=== PATIENT | male | born 2000 | race Caucasian/White ===

== ENCOUNTER 2022-02-19 20:04 | Emergency (ER) | payer BC, MEDICAID, SELFPAY ==
[2022-02-19 20:09] VITALS: BP 122/71; PULSE 67; RESP 16; TEMP 36.6; O2SAT 98; BMI 23.1
--- NOTE | 2022-02-19 20:32 | ED.NURSE ---
strep swab obtained
--- NOTE | 2022-02-19 21:15 | ED.GENADULT ---
HPI - General Adult General Chief complaint: Sore Throat Stated complaint: SORE THROAT WITH PUSS POCKETS Time Seen by Provider: 02/19/22 21:09 History of Present Illness HPI narrative: 21-year-old male coming in today complaining of sore throat. Started this morning. It is mainly on the left side of his throat. He states that he saw a large pus pocket earlier today. Denies any fevers or chills. Denies any other systemic symptoms. No difficulty breathing or swallowing. Related Data Home Medications Medication Instructions Recorded Confirmed No Known Home Medications 02/19/22 02/19/22 Allergies Allergy/AdvReac Type Severity Reaction Status Date / Time No Known Drug Allergies Allergy Verified 02/19/22 20:15 Review of Systems Status of ROS: Reports: 10 or more systems reviewed and unremarkable except as noted in History and below Exam Narrative: Exam Narrative: Well-nourished well-developed patient in no acute distress. Smells of marijuana. Affect is flat. Thoughts are goal oriented and rational. No tangential or magical thinking noted. Patient speaks in full sentences without needing to catch his breath. HEENT: Normocephalic atraumatic. Pupils are equally round reactive to light. Extraocular muscles are intact. Conjunctivae are moist without any icterus noted, are injected bilaterally. Moist mucous membranes. Posterior pharynx is normal. I do not see any tonsillar swelling, erythema or any pus. Neck is soft without any lymphadenopathy or thyromegaly. No masses are appreciated. TMs are clear bilaterally. Skin: Well perfused without any obvious rashes. Const: Vital Signs, click to edit/add: Vital Signs - 24 hr 02/19/22 20:09 Temperature 97.9 F Pulse Rate [Right Pulse Oximeter] 67 Respiratory Rate 16 Blood Pressure [Ri ght Upper Arm] 122/71 Pulse Oximetry 98 Course Vital Signs Vital signs: Initial Vital Signs Temperature 97.9 F 02/19/22 20:09 Temperature Source Temporal Artery Scan 02/19/22 20:09 Pulse Rate 67 02/19/22 20:09 Respiratory Rate 16 02/19/22 20:09 Blood Pressure 122/71 02/19/22 20:09 Blood Pressure Mean 88 02/19/22 20:09 Blood Pressure Position Sitting 02/19/22 20:09 Pulse Oximetry 98 02/19/22 20:09 Oxygen Delivery Method 02/19/22 20:09 Vital Signs Temperature 97.9 F 02/19/22 20:09 Pulse Rate 67 02/19/22 20:09 Respiratory Rate 16 02/19/22 20:09 Blood Pressure 122/71 02/19/22 20:09 Pulse Oximetry 98 02/19/22 20:09 Temperature 97.9 F 02/19/22 20:09 Pulse Rate 67 02/19/22 20:09 Respiratory Rate 16 02/19/22 20:09 Blood Pressure 122/71 02/19/22 20:09 Pulse Oximetry 98 02/19/22 20:09 Medical Decision Making MDM Narrative Medical decision making narrative: 21-year-old male with sore throat likely viral in nature. We did swab him for strep that is pending. We will call in if that is positive. We discussed symptomatic treatment and reasons to return to the ER. Discharge Plan Discharge Clinical Impression: Acute sore throat Patient Disposition: Home, Self-Care Condition: Stable Instructions: Pharyngitis (ED) Additional Instructions: Okay to use Tylenol or ibuprofen as needed for discomfort. Return to the ER if you develop a fever her cannot swallow. We will call you today if your strep test comes back positive. Prescriptions: No Action No Known Home Medications 0RF Stand Alone Forms: [employer] Info Instructions
[2022-02-19 21:22] LABS: Strep A DNA Probe* Not Detected (No Detected)
== END 2022-02-19 21:35 | disposition home or self-care (01) ==
LOC: ED 21:54
PROVIDERS: Emergency Provider Family Medicine
DX: J02.9 Acute pharyngitis, unspecified (principal)
CPT/HCPCS: 87651; 99282; 99283